=== PATIENT | female | born 1950 | race Caucasian/White ===

== ENCOUNTER 2025-01-23 07:55 | Inpatient (IN) | payer MEDICARE, OTHER ==
[~2025-01-23] VITALS: Ht 152.4 cm; Wt 68.5 kg
[2025-01-23] MEDS ORDERED: FENTANYL PF 250MCG/5ML AMPUL ONE (08:07)
[2025-01-23] MEDS ORDERED: ROCURONIUM BROMIDE 50 MG/5 ML ONE (08:07)
[2025-01-23] MEDS ORDERED: LIDOCAINE 2%-EPI 1:100,000 30 ML VIAL ONE (08:48)
[2025-01-23] MEDS ORDERED: dexaMETHasone SOD PHOSPHATE 1 ML ONE (08:48)
[2025-01-23] MEDS ORDERED: OXYMETAZOLINE HCL NASAL SPRAY 30 ML BOTTLE NS ONE (08:48)
[2025-01-23] MEDS ORDERED: VANCOMYCIN 1 GM VIAL ONE (08:48)
[2025-01-23 08:55] LABS: CALCIUM, SERUM 8.9 mg/dL (8.5-10.1); CREATININE 0.8 mg/dL (0.6-1.3); SODIUM SERUM 143.0 mmol/L (136-145); UREA NITROGEN, BLOOD 24.0 mg/dL (7-18)
[2025-01-23 09:02] LABS: ASPARTATE AMINOTRANSFERASE 17.0 U/L (15-37); TOTAL PROTEIN, SERUM 7.2 g/dL (6.4-8.2)
[2025-01-23 09:03] LABS: INR 0.96 (0.91-1.10)
[2025-01-23] MEDS ORDERED: LABETALOL HCL IV 100MG VIAL ONE (09:28)
[2025-01-23] MEDS ORDERED: ONDANSETRON HCL/PF 4 MG/2 ML VIAL IV PRN (12:00)
[2025-01-23] MEDS ORDERED: ACETAMINOPHEN 325 MG TABLET PO PRN (12:00)
[2025-01-23] MEDS: IV NS 0.9% 1,000 ML IV PRN (12:47)
[2025-01-23] MEDS: HYDROMORPHONE 1 MG/1 ML DISP.SYRIN IV PRN (12:49)
[2025-01-23 13:46] VITALS: BP 129/65; TEMP 98.3; O2SAT 98
[2025-01-23] MEDS ORDERED: DEXTROSE 50%-WATER 50 ML DISP.SYRIN IV PRN (16:00)
[2025-01-23] MEDS: INSULIN REGULAR, HUMAN 100 UNIT/ML 3 ML VIAL SQ PRN (16:38)
[2025-01-23] MEDS: BLOOD SUGAR DIAGNOSTIC 1 EACH STRIP IN SCH (16:38)
[2025-01-23 16:57] VITALS: BP 127/70; TEMP 98.6; O2SAT 98
[2025-01-23 19:00] VITALS: BP 127/78; TEMP 98.6; O2SAT 95
[2025-01-23] MEDS: VANCOMYCIN 1 GM in IV D5W 250ml IV SCH (19:36)
== END 2025-01-24 12:00 | disposition home or self-care (01) | DRG 497 ==
LOC: DS 07:55 → MED 10:43
PROC: 0N5R0ZZ Destruction of Maxilla, Open Approach (ICD-10-PCS; 2025-01-23)
PROC: 09UR07Z Supplement Left Maxillary Sinus with Autologous Tissue Substitute, Open Approach (ICD-10-PCS; 2025-01-23)
PROC: 09UQ07Z Supplement Right Maxillary Sinus with Autologous Tissue Substitute, Open Approach (ICD-10-PCS; 2025-01-23)
PROC: 0NUR07Z Supplement Maxilla with Autologous Tissue Substitute, Open Approach (ICD-10-PCS; 2025-01-23)
PROC: 0NSR04Z Reposition Maxilla with Internal Fixation Device, Open Approach (ICD-10-PCS; principal; 2025-01-23 10:15)
DX: S02.40CK Maxillary fracture, right side, subsequent encounter for fracture with nonunion (principal); S02.40DK Maxillary fracture, left side, subsequent encounter for fracture with nonunion; X58.XXXD Exposure to other specified factors, subsequent encounter; M27.2 Inflammatory conditions of jaws; E11.9 Type 2 diabetes mellitus without complications; H40.9 Unspecified glaucoma; I10 Essential (primary) hypertension; Z79.84 Long term (current) use of oral hypoglycemic drugs; Z88.0 Allergy status to penicillin; D16.5 Benign neoplasm of lower jaw bone; J32.0 Chronic maxillary sinusitis; D03.8 Melanoma in situ of other sites; I34.0 Nonrheumatic mitral (valve) insufficiency
CPT/HCPCS: 36415; 80053-TC; 82962-TC; 85730-TC; 88305-TC; 88311-TC; A4217; A4223; A4338; C1713; G0378; J0330; J0360; J0690; J1100; J1171; J1815; J2704; J3010; J3373; J3490; J7030; J7060